=== PATIENT | male | born 1970 | race Caucasian/White ===

== ENCOUNTER 2018-12-02 22:42 | Observation (INO) | payer BC ==
--- NOTE | 2018-12-02 23:13 | EDM.PDOC ---
ED HPI GENERAL MEDICAL PROBLEM - General Chief Complaint: General Time Seen by Provider: 12/02/18 22:45 Source of Information: Reports: Patient History Limitations: Reports: No Limitations - History of Present Illness INITIAL COMMENTS - FREE TEXT/NARRATIVE: According to patient he claims that he has been having racing heart for past 2 hrs now. He claims it started round 9:30 PM today. Has been feeling anxious and slightly short of breath. His SPO 2 is 100% on room air. No chest pain. No syncope. No vomiting. But now in the emergency room has been feeling nauseous. Pt claims that he has had ablation therapy of the accessory tracts done twice. Once at [facility] in 2012 and twice at [facility] in 2013 and has failed. He is on metoprolol 50mg BID. He did take extra metoprolol to night and also he has tried bearing down and putting his face out in the cold which has not helped. Apparently the last time he has had any cardiac workup is 2013 at [facility]. He did go down to [facility] last year for cardiology consult. He was seen in the clinic and no work up or EKG was done on that visit. Onset: Today Onset Date: 12/02/18 Onset Time: 21:30 Improves with: Reports: None Worsens with: Reports: None Associated Symptoms: Reports: Shortness of Breath. Denies: Confusion, Chest Pain, Cough, Diaphoresis, Fever/Chills, Nausea/Vomiting, Rash, Seizure, Syncope , Weakness - Related Data Allergies Allergy/AdvReac Type Severity Reaction Status Date / Time No Known Allergies Allergy Verified 09/02/18 01:27 Home Meds: Home Meds Metoprolol Tartrate 1 tab PO BID 09/02/18 [History] Omeprazole 1 cap PO DAILY 09/02/18 [History] ED ROS GENERAL - Review of Systems Review Of Systems: See Below Constitutional: Denies: Fever, Chills, Malaise, Weakness HEENT: Denies: Rhinitis, Throat Pain, Throat Swelling, Vision Change Respiratory: Reports: Shortness of Breath. Denies: Wheezing, Pleuritic Chest Pain, Cough, Sputum Cardiovascular: Reports: Palpitations. Denies: Chest Pain, Dyspnea on Exertion , Lightheadedness GI/Abdominal: Denies: Abdominal Pain, Nausea, Vomiting Musculoskeletal: Denies: Joint Pain, Joint Swelling Skin: Denies: Bruising, Pruritis, Rash Neurological: Denies: Confusion, Dizziness, Headache, Numbness Psychiatric: Denies: Agitation, Anxiety ED EXAM, GENERAL - Physical Exam Exam: See Below Exam Limited By: No Limitations General Appearance: Alert, WD/WN, Anxious Eye Exam: Bilateral Eye: EOMI, PERRL Ears: Normal External Exam, Normal Canal, Hearing Grossly Normal, Normal TMs Ear Exam: Bilateral Ear: Auricle Normal, Canal Normal, TM normal Nose: Normal Inspection, Normal Mucosa, No Blood Throat/Mouth: Normal Inspection, Normal Lips, Normal Teeth, Normal Gums, Normal Oropharynx, Normal Voice, No Airway Compromise Head: Atraumatic, Normocephalic Neck: Normal Inspection, Supple, Non-Tender, Full Range of Motion Respiratory/Chest: No Respiratory Distress, Lungs Clear, Normal Breath Sounds, No Accessory Muscle Use, Chest Non-Tender Cardiovascular: Normal Peripheral Pulses, Regular Rate, Rhythm, No Edema, No Gallop, No JVD, No Murmur, No Rub GI/Abdominal: Normal Bowel Sounds, Soft, Non-Tender, No Organomegaly, No Distention, No Abnormal Bruit, No Mass Extremities: Normal Inspection, Normal Range of Motion, Non-Tender, Normal Capillary Refill, No Pedal Edema Neurological: Alert, Oriented, CN II-XII Intact, Normal Cognition, Normal Gait, Normal Reflexes, No Motor/Sensory Deficits Psychiatric: Normal Affect, Normal Mood, Anxious EKG INTERPRETATION EKG Date: 12/02/18 Time: 22:40 Rate (Beats/Min): 162 [place]: LAD-Left [place] Deviation QRS: LBBB EKG Interpretation Comments: LBBB Course - Vital Signs Text/Narrative:: Pt is 48 year old male with PMH of PSVT who has failed ablation therapy 3 times. He has been on metoprolol 50mg BID for a long time. He claims most of the time bearing down or cold water resolved the palpitations in the past.His scripts were refilled by phone until 2018. His last cardiac evaluations in [facility] in 2013. Since then he has not had any cardiac evaluation or consult. On EKG done today, he has left BBB, patient has not been told of this in the past. He is not sure. If this is new onset, there could be under lying AL.Pt's vitals are stable other then his heart rate consistently in 160s to 170s. Will first get cardiac workup. I have ordered CBC, CMP and troponin. Also tried to contact [facility] for his last available cardiac workup and EKGs from 2013.Pt is very anxious and c/o nausea. He did receive Morphine 2mg IV and zofran 4mg IV. Pt's troponin is back and is negative. I did contact Dr. Virgen at [facility] and discuss patient EKG and my concern. We did fax the EKG for his interpretations and recommendations. He did go though the available medical record from [facility] which showed and review EKG and his recommendation was to start patient on IV amiodarone and if it fails to start propofol drip and cardiovert. I have discussed the recommendation with family and patient. I can to go ahead with Amiodorone IV therapy here, but I m not comfortable cardioverting a patient in a remote facility at midnight with available nearest wood stainer being 100miles away, unless patient is decompensating. So patient was started on amiodarone bolus of 150mg followed by drip of 1mg/ minute. His initial Blood pressure before drip was started was 101/63mmhg.He did receive bolus of normal saline 1 litre and has been on NS at 150cc/hr. Pt was started on amiodarone Iv. He did convert into normal sinus rhythm with rate in 70s around 00:45 am, also his blood pressure has improved. Pt is feeling better. he is on maintenance amiodarone drip now. Will admit him to hospital floor for observation and monitor. Will reassess in AM. - Orders/Labs/Meds Orders: Active Orders 24 hr Category Date Time Status EKG Documentation Completion [RC] ASDIRECTED Care 12/02/18 22:47 Ordered Amiodarone 450 MG in D5W @ 1 MG/MIN(250ml) Med 12/03/18 00:15 Ordered Amiodarone [Cordarone] 450 mg Dextrose 5% in Water 241 ml IV ASDIRECTED Amiodarone [Cordarone] 150 mg Med 12/03/18 00:15 Ordered Dextrose 5% in Water 100 ml IV .BOLUS Sodium Chloride 0.9% @ 150 MLS/HR (1000ml) Med 12/03/18 00:15 Ordered Sodium Chloride 0.9% [Normal Saline] 1,000 ml IV ASDIRECTED Medication Orders Amiodarone HCl 150 mg/ (Dextrose/Water) 103 mls @ 600 mls/hr IV .BOLUS FAUSTINA Sodium Chloride (Normal Saline) 1,000 mls @ 150 mls/hr IV ASDIRECTED FAUSTINA Amiodarone HCl 450 mg/ (Dextrose/Water) 250 mls @ 33.33 mls/hr IV ASDIRECTED FAUSTINA; Protocol Labs: Laboratory Tests 12/02/18 12/02/18 Range/Units 22:55 22:55 WBC 10.6 (4.0-11.0) K/uL RBC 5.03 (4.50-6.50) M/uL Hgb 15.2 (13.0-18.0) g/dL Hct 44.1 (40.0-54.0) % MCV 88 (76-96) fL MCH 30.2 (27.0-32.0) pg MCHC 34.5 (31.0-35.0) g/dL RDW 13.0 (11.0-16.0) % Plt Count 289 (150-400) K/uL MPV 9.9 (6.0-10.0) fL Neut % (Auto) 59.9 (45.0-70.0) % Lymph % (Auto) 30.6 (20.0-40.0) % [place] % (Auto) 8.4 (3.0-10.0) % Eos % (Auto) 0.7 L (1.0-5.0) % Baso % (Auto) 0.4 (0.0-0.5) % Neut # (Auto) 6.34 (2.00-7.50) K/uL Lymph # (Auto) 3.24 (1.50-4.00) K/uL [place] # (Auto) 0.89 H (0.20-0.80) K/uL Eos # (Auto) 0.07 (0.04-0.40) K/uL Baso # (Auto) 0.04 (0.02-0.10) K/uL Sodium 140 (136-145) mmol/L Potassium 3.9 (3.5-5.1) mmol/L Chloride 102 (98-107) mmol/L Carbon Dioxide 21.3 (21.0-32.0) mmol/L Anion Gap 20.6 H (5.0-15.0) mmol/L BUN 22 (8-26) mg/dL Creatinine 1.13 (0.70-1.30) mg/dL Est Cr Clr Drug Dosing TNP Estimated GFR (MDRD) > 60 (>60) MLS/MIN BUN/Creatinine Ratio 19.5 (6-25) Glucose 134 H (74-100) mg/dL Calcium 9.1 (8.5-10.1) mg/dL Total Bilirubin 0.3 (0.0-1.0) mg/dL AST 75 H (15-37) U/L ALT 95 H (12-78) U/L Alkaline Phosphatase 69 (46-116) U/L Troponin I 0.025 (0.000-0.060) ng/mL Total Protein 7.1 (6.4-8.2) g/dL Albumin 3.9 (3.4-5.0) g/dL Globulin 3.2 (2.2-4.2) g/dL Albumin/Globulin Ratio 1.2 (0.8-2.0) Meds: Medications Generic Name Dose Route Start Last Admin Trade Name Freq PRN Reason Stop Dose Admin Amiodarone HCl 150 mg/ 103 mls @ 600 mls/hr 12/03/18 00:15 Dextrose/Water IV .BOLUS FAUSTINA Sodium Chloride 1,000 mls @ 150 mls/hr 12/03/18 00:15 Normal Saline IV ASDIRECTED FAUSTINA Amiodarone HCl 450 mg/ 250 mls @ 33.33 mls/hr 12/03/18 00:15 Dextrose/Water IV ASDIRECTED FAUSTINA Protocol 1 MG/MIN Discontinued Medications Generic Name Dose Route Start Last Admin Trade Name Freq PRN Reason Stop Dose Admin Adenosine Confirm 12/02/18 23:41 Adenocard Administered 12/02/18 23:42 Dose 12 mg .ROUTE .STK-MED ONE Amiodarone HCl Confirm 12/03/18 00:40 Cordarone Administered 12/03/18 00:41 Dose 450 mg IV .STK-MED ONE Morphine Sulfate Confirm 12/02/18 23:32 Morphine Administered 12/02/18 23:33 Dose 2 mg .ROUTE .STK-MED ONE Morphine Sulfate 2 mg 12/02/18 23:27 Morphine IV 12/02/18 23:28 ONETIME ONE Ondansetron HCl Confirm 12/02/18 23:32 Zofran Administered 12/02/18 23:33 Dose 4 mg .ROUTE .STK-MED ONE Ondansetron HCl 4 mg 12/02/18 23:28 12/02/18 23:28 Zofran IVPUSH 12/02/18 23:29 4 mg ONETIME ONE Administration Departure - Departure Time of Disposition: 13:00 Disposition: Refer to Observation Condition: Fair Clinical Impression: Wide-complex tachycardia - Discharge Information *PRESCRIPTION DRUG MONITORING PROGRAM REVIEWED*: Not Applicable *COPY OF PRESCRIPTION DRUG MONITORING REPORT IN PATIENT PROSPER: Not Applicable Forms: ED Department Discharge - Problem List & Annotations (1) Wide-complex tachycardia SNOMED Code(s): 791807647 Code(s): I47.2 - VENTRICULAR TACHYCARDIA Status: Acute Current Visit: Yes - Problem List Review Problem List Initiated/Reviewed/Updated: Yes - My Orders Last 24 Hours: My Active Orders 12/02/18 22:47 EKG Documentation Completion [RC] ASDIRECTED 12/03/18 00:15 Amiodarone 450 MG in D5W @ 1 MG/MIN(250ml) Amiodarone [Cordarone] 450 mg Dextrose 5% in Water 241 ml IV ASDIRECTED Amiodarone [Cordarone] 150 mg Dextrose 5% in Water 100 ml IV .BOLUS Sodium Chloride 0.9% @ 150 MLS/HR (1000ml) Sodium Chloride 0.9% [Normal Saline] 1,000 ml IV ASDIRECTED - Assessment/Plan Last 24 Hours: My Active Orders 12/02/18 22:47 EKG Documentation Completion [RC] ASDIRECTED 12/03/18 00:15 Amiodarone 450 MG in D5W @ 1 MG/MIN(250ml) Amiodarone [Cordarone] 450 mg Dextrose 5% in Water 241 ml IV ASDIRECTED Amiodarone [Cordarone] 150 mg Dextrose 5% in Water 100 ml IV .BOLUS Sodium Chloride 0.9% @ 150 MLS/HR (1000ml) Sodium Chloride 0.9% [Normal Saline] 1,000 ml IV ASDIRECTED Assessment:: wide complex ventricular tachycardia Plan: Pt is 48 year old male with PMH of PSVT who has failed ablation therapy 3 times. He has been on metoprolol 50mg BID for a long time. He claims most of the time bearing down or cold water resolved the palpitations in the past.His scripts were refilled by phone until 2018. His last cardiac evaluations in [facility] in 2013. Since then he has not had any cardiac evaluation or consult. On EKG done today, he has left BBB, patient has not been told of this in the past. He is not sure. If this is new onset, there could be under lying AL.Pt's vitals are stable other then his heart rate consistently in 160s to 170s. Will first get cardiac workup. I have ordered CBC, CMP and troponin. Also tried to contact [facility] for his last available cardiac workup and EKGs from 2013.Pt is very anxious and c/o nausea. He did receive Morphine 2mg IV and zofran 4mg IV. Pt's troponin is back and is negative. I did contact Dr. Virgen at [facility] and discuss patient EKG and my concern. We did fax the EKG for his interpretations and recommendations. He did go though the available medical record from [facility] which showed and review EKG and his recommendation was to start patient on IV amiodarone and if it fails to start propofol drip and cardiovert. I have discussed the recommendation with family and patient. I can to go ahead with Amiodorone IV therapy here, but I m not comfortable cardioverting a patient in a remote facility at midnight with available nearest wood stainer being 100miles away, unless patient is decompensating. So patient was started on amiodarone bolus of 150mg followed by drip of 1mg/ minute. His initial Blood pressure before drip was started was 101/63mmhg.He did receive bolus of normal saline 1 litre and has been on NS at 150cc/hr. Pt was started on amiodarone Iv. He did convert into normal sinus rhythm with rate in 70s around 00:45 am, also his blood pressure has improved. Pt is feeling better. he is on maintenance amiodarone drip now. Will admit him to hospital floor for observation and monitor. Will reassess in AM.
[2018-12-02] MEDS: Ondansetron 4 MG/2 ML SDV IVPUSH ONE (23:28)
[2018-12-02] MEDS: Morphine 10 MG/ML SDV IV ONE (23:30)
[2018-12-02] MEDS: Ondansetron 4 MG/2 ML SDV ONE (23:40)
[2018-12-03] MEDS: Sodium Chloride 0.9% 1,000 ML IV SCH ×2 (00:05→00:30)
[2018-12-03] MEDS: Amiodarone 150 MG in Dextrose 5% in Water 100 ML IV SCH ×2 (00:25)
[2018-12-03] MEDS: Adenosine 12 MG/4 ML SDV ONE (02:58)
[2018-12-03] MEDS: Amiodarone 450 MG/9 ML SDV IV ONE (03:00)
[2018-12-03] MEDS: Morphine 2 MG/ML Syringe ONE (03:07)
[2018-12-03] MEDS: Pantoprazole 40 MG Vial IVPUSH ONE (03:31)
[2018-12-03] MEDS: Pantoprazole 40 MG Vial ONE (03:31)
--- NOTE | 2018-12-03 12:10 | PCM.DCSUM1 ---
Discharge Summary - Hospital Course Free Text/Narrative:: Pt presented to emergency room with shortness of breath with palpations. He was having wide complex tachycardia with rate in 160s. Vitals stable. Pt workup including troponin were negative. I did consult Dr. Puente, campground hand at [facility]. Per his recommendation Amiodarone drip was started after discuss with patient. Pt did convert to sinus rhythm around 00:45 today morning. HE was paled on maintenance drip of 1mg/min and transferred to floor. Pt has remained in sinus rhythm with his rate around 60-70/minute. He does not feel tired or shortness of breath. his vital have been stable. On 12/03/[address] Puente, discuss patient with him. Dr Puente's recommendation was to stop the amiodarone drip and monitor patient for 2-3 hrs to make sure he remains in sinus rhythm and discharge him on his home medications. Pt should followup with Cardiology next week. Pt's drip was discontinued around 9 am, he has remained in sinus rhythm with rates around 60-70s. Pt has been planned for discharge. advised to continue home meds. followup with Cardiology in 1 wk. And followup with primary care in next 1-2 days. Brief History: presented to ER yesterday with palpitions with shrotness of breath, pt was in wide complex tachycardia, admitted for rhythm control. Kindly see H&P for details. Diagnosis: Stroke: No - Discharge Data Discharge Date: 12/03/18 Discharge Disposition: Home, Self-Care 01 Condition: Good - Discharge Diagnosis/Problem(s) (1) Wide-complex tachycardia SNOMED Code(s): 488771912 ICD Code: I47.2 - VENTRICULAR TACHYCARDIA Status: Acute Current Visit: Yes - Patient Instructions Diet: Heart Healthy Diet Fluid Restriction: 1500 mL Activity: As Tolerated Driving: May Drive Today Showering/Bathing: May Shower - Discharge Plan *PRESCRIPTION DRUG MONITORING PROGRAM REVIEWED*: Not Applicable *COPY OF PRESCRIPTION DRUG MONITORING REPORT IN PATIENT PROSPER: Not Applicable Home Medications: Home Meds Metoprolol Tartrate 1 tab PO BID 09/02/18 [History] Omeprazole 1 cap PO DAILY 09/02/18 [History] Forms: ED Department Discharge - Discharge Summary/Plan Comment DC Time >30 min.: Yes Discharge Summary/Plan Comment: Pt's drip was discontinued around 9 am, he has remained in sinus rhythm with rates around 60-70s. Pt has been planned for discharge. advised to continue home meds. followup with Cardiology in 1 wk. And followup with primary care in next 1-2 days. - General Info Date of Service: 12/03/18 Subjective Update: Pt has jim in rate controlled sinus rhythm all night. no chest pain or palpitation. claims he feels fine. Functional Status: Reports: Tolerating Diet, Ambulating, Urinating - Review of Systems General: Denies: Fever, Weakness HEENT: Denies: Sinus Congestion, Rhinitis Pulmonary: Denies: Shortness of Breath, Cough, Sputum, Hemoptysis Cardiovascular: Denies: Chest Pain, Lightheadedness Gastrointestinal: Denies: Abdominal Pain, Nausea, Vomiting Genitourinary: Denies: Dysuria, Frequency Musculoskeletal: Denies: Joint Pain, Joint Swelling Skin: Denies: Bruising, Pruritis, Rash Neurological: Denies: Confusion, Dizziness, Headache, Numbness, Tingling - Patient Data Vitals - Most Recent: Last Vital Signs Temp 98.1 F 12/03/18 07:00 Pulse 57 L 12/03/18 11:00 Resp 18 12/03/18 11:00 BP 109/65 12/03/18 11:00 Pulse Ox 100 12/03/18 11:00 Weight - Most Recent: 11.34 kg I&O - Last 24 hours: Intake & Output 12/02/18 12/03/18 12/03/18 22:59 06:59 14:59 Intake Total 60 2169 Output Total 1000 Balance -940 2169 Lab Results - Last 24 hrs: Laboratory Results - last 24 hr 12/02/18 12/02/18 Range/Units 22:55 22:55 WBC 10.6 (4.0-11.0) K/uL RBC 5.03 (4.50-6.50) M/uL Hgb 15.2 (13.0-18.0) g/dL Hct 44.1 (40.0-54.0) % MCV 88 (76-96) fL MCH 30.2 (27.0-32.0) pg MCHC 34.5 (31.0-35.0) g/dL RDW 13.0 (11.0-16.0) % Plt Count 289 (150-400) K/uL MPV 9.9 (6.0-10.0) fL Neut % (Auto) 59.9 (45.0-70.0) % Lymph % (Auto) 30.6 (20.0-40.0) % [place] % (Auto) 8.4 (3.0-10.0) % Eos % (Auto) 0.7 L (1.0-5.0) % Baso % (Auto) 0.4 (0.0-0.5) % Neut # (Auto) 6.34 (2.00-7.50) K/uL Lymph # (Auto) 3.24 (1.50-4.00) K/uL [place] # (Auto) 0.89 H (0.20-0.80) K/uL Eos # (Auto) 0.07 (0.04-0.40) K/uL Baso # (Auto) 0.04 (0.02-0.10) K/uL Sodium 140 (136-145) mmol/L Potassium 3.9 (3.5-5.1) mmol/L Chloride 102 (98-107) mmol/L Carbon Dioxide 21.3 (21.0-32.0) mmol/L Anion Gap 20.6 H (5.0-15.0) mmol/L BUN 22 (8-26) mg/dL Creatinine 1.13 (0.70-1.30) mg/dL Est Cr Clr Drug Dosing TNP Estimated GFR (MDRD) > 60 (>60) MLS/MIN BUN/Creatinine Ratio 19.5 (6-25) Glucose 134 H (74-100) mg/dL Calcium 9.1 (8.5-10.1) mg/dL Total Bilirubin 0.3 (0.0-1.0) mg/dL AST 75 H (15-37) U/L ALT 95 H (12-78) U/L Alkaline Phosphatase 69 (46-116) U/L Troponin I 0.025 (0.000-0.060) ng/mL Total Protein 7.1 (6.4-8.2) g/dL Albumin 3.9 (3.4-5.0) g/dL Globulin 3.2 (2.2-4.2) g/dL Albumin/Globulin Ratio 1.2 (0.8-2.0) Med Orders - Current: Current Medications Amiodarone HCl 150 mg/ (Dextrose/Water) 103 mls @ 600 mls/hr IV .BOLUS FAUSTINA Last Admin: 12/03/18 00:25 Dose: 600 mls/hr Sodium Chloride (Normal Saline) 1,000 mls @ 150 mls/hr IV ASDIRECTED FAUSTINA Last Admin: 12/03/18 00:30 Dose: 150 mls/hr Amiodarone HCl 450 mg/ (Dextrose/Water) 250 mls @ 33.33 mls/hr IV ASDIRECTED FAUSTINA; Protocol Last Admin: 12/03/18 00:40 Dose: 1 mg/min, 33.33 mls/hr Sodium Chloride (Normal Saline) 1,000 mls @ 999 mls/hr IV ASDIRECTED FAUSTINA Last Admin: 12/03/18 00:05 Dose: 999 mls/hr Discontinued Medications Adenosine (Adenocard) Confirm Administered Dose 12 mg .ROUTE .STK-MED ONE Stop: 12/02/18 23:42 Last Admin: 12/03/18 02:58 Dose: Not Given Amiodarone HCl (Cordarone) Confirm Administered Dose 450 mg IV .STK-MED ONE Stop: 12/03/18 00:41 Last Admin: 12/03/18 03:00 Dose: Not Given Morphine Sulfate (Morphine) Confirm Administered Dose 2 mg .ROUTE .STK-MED ONE Stop: 12/02/18 23:33 Last Admin: 12/03/18 03:07 Dose: Not Given Morphine Sulfate (Morphine) 2 mg IV ONETIME ONE Stop: 12/02/18 23:28 Last Admin: 12/02/18 23:30 Dose: 2 mg Ondansetron HCl (Zofran) Confirm Administered Dose 4 mg .ROUTE .STK-MED ONE Stop: 12/02/18 23:33 Last Admin: 12/02/18 23:40 Dose: 4 mg Ondansetron HCl (Zofran) 4 mg IVPUSH ONETIME ONE Stop: 12/02/18 23:29 Last Admin: 12/02/18 23:28 Dose: 4 mg Pantoprazole Sodium (Protonix Iv) 40 mg IVPUSH ONETIME ONE Stop: 12/03/18 01:15 Last Admin: 12/03/18 03:31 Dose: 40 mg Pantoprazole Sodium (Protonix Iv) Confirm Administered Dose 40 mg .ROUTE .STK -MED ONE Stop: 12/03/18 03:28 Last Admin: 12/03/18 03:31 Dose: Not Given - Exam General: Reports: Alert, Oriented HEENT: Reports: Pupils Equal, Pupils Reactive, EOMI, Mucous Membr. Moist/[place] Neck: Reports: Supple Lungs: Reports: Clear to Auscultation, Normal Respiratory Effort Cardiovascular: Reports: Regular Rate, Regular Rhythm GI/Abdominal Exam: Normal Bowel Sounds, Soft, Non-Tender, No Organomegaly, No Distention, No Abnormal Bruit, No Mass, Pelvis Stable Extremities: Normal Inspection, Normal Range of Motion, Non-Tender, No Pedal Edema, Normal Capillary Refill Skin: Reports: Warm, Intact
== END 2018-12-03 12:40 | disposition home or self-care (01) ==
LOC: LB.ED 22:42 → UNDOADMOB 12-03 01:00 → LB.MS 12-03 01:00 → UNDODISOB 12-03 12:40
PROVIDERS: ADMIT Family Medicine; ATTEND Family Medicine
DX: I47.2 Ventricular tachycardia (principal); Z79.899 Other long term (current) drug therapy
CPT/HCPCS: 36415; 80053; 84484; 85025; 93005; C9113; J0282; J2270; J2405; J7030; J7060